=== PATIENT | female | born 1945 | race Caucasian/White ===

== ENCOUNTER 2017-06-18 22:05 | Inpatient (IN) | payer OTHER ==
[~2017-06-18] VITALS: Ht 157.5 cm; Wt 60.0 kg
[2017-06-18 22:05] VITALS: Ht 157.5 cm; Wt 60.0 kg
[2017-06-18] MEDS ORDERED: SOD CHLORIDE 0.9% 1,000 ML IV STA (22:30)
[2017-06-18] MEDS ORDERED: ASPIRIN 325 MG TAB PO STA (22:30)
[2017-06-18 23:36] LABS: ADD SCAN DIFF NO
[2017-06-18 23:39] LABS: BASOPHIL # 0.1 10^3/ul (0.0-0.1); BASOPHILS % 0.6 % (0.0-2.0); EOSINOPHILS # 0.3 10^3/ul (0.0-0.5); EOSINOPHILS % 3.8 % (0.0-7.0); HEMATOCRIT 38.4 % (37.0-47.0); HEMOGLOBIN 12.8 g/dl (12.0-16.0); LYMPHOCYTES # 2.7 10^3/ul (0.8-2.9); LYMPHOCYTES % 32.5 % (15.0-51.0); MEAN CORPUSCULAR HEMOGLOBIN 29.8 pg (29.0-33.0); MEAN CORPUSCULAR HGB CONC 33.3 g/dl (32.0-37.0); MEAN CORPUSCULAR VOLUME 89.3 fl (82.0-101.0); MONOCYTE # 0.8 10^3/ul (0.3-0.9); MONOCYTES % 9.3 % (0.0-11.0); NEUTROPHIL # 4.5 10^3/ul (1.6-7.5); NEUTROPHILS % 53.4 % (39.0-77.0); PLATELET COUNT 239 10^3/UL (140-415); RED CELL DISTRIBUTION WIDTH 12.7 % (11.5-14.5); WHITE BLOOD COUNT 8.4 10^3/ul (4.8-10.8)
--- NOTE | 2017-06-18 23:46 | RADRPT ---
PROCEDURE: XR Chest. CLINICAL INDICATION: Possible Stroke TECHNIQUE: Single frontal view of the chest. COMPARISON: None. FINDINGS: Cardiomegaly. Atherosclerotic calcifications of the thoracic aorta. Elevation of the right hemidiap hragm with likely atelectasis at the right lung base. The lungs otherwise clear. No signs of pleura l fluid or pneumothorax are seen. The osseous structures and soft tissues are unremarkable. IMPRESSION: Elevation right hemidiaphragm with likely atelectasis at the right lung base. RPTAT: [facility]U Physician Ricardo Date Time Electronically viewed and signed by Physician Ricardo on 06/18/2017 23:45 RS/
[2017-06-18 23:54] LABS: INR 0.91; PROTIME 12.3 Sec (12.2-14.2)
[2017-06-18 23:55] LABS: PARTIAL THROMBOPLASTIN TIME 33.7 Sec (25.0-35.0)
[2017-06-18] MEDS ORDERED: ASPI-664 PO (23:59)
[2017-06-18] MEDS ORDERED: DULO30CA47 PO (23:59)
[2017-06-18] MEDS ORDERED: MEMA5TAB PO (23:59)
[2017-06-18] MEDS ORDERED: LEVO150T67 PO (23:59)
[2017-06-18] MEDS ORDERED: DEXT1CAP PO (23:59)
[2017-06-18] MEDS ORDERED: ATOR20TA38 PO (23:59)
--- NOTE | 2017-06-18 23:59 | ERA ---
ER Documentation Chief Complaint Date/Time DATE: 06/18/17 TIME: 23:53 Chief Complaint R arm pain/numbness today from facility HPI This is a 71-year-old female with a history of prior stroke leaving her with some cognitive decline and expressive dysphasia she is able to communicate some of her thoughts but some of her thoughts are complete garbled word salad. Patient is residing at a [facility] unit and she had complained of some right arm complaints this afternoon. The time is unknown. After spending some time with her carefully trying to put together the history the patient is actually complaining that she has some numbness to her right face and right arm and she says it is like it was before meaning like her old stroke. I do not know if her expressive dysphasia is any worse. She says her right leg is okay. No weakness. ROS All systems reviewed and are negative except as per history of present illness. Medications Home Meds Reported Medications Aspirin* (Aspirin* EC) 81 Mg Tablet.dr, 81 MG PO DAILY, TAB TAKE 2 TABLETS BY MOUTH DAILY 06/18/17 Atorvastatin Calcium* (Atorvastatin Calcium*) 20 Mg Tablet, 20 MG PO QHS, #30 TAB 06/18/17 Levothyroxine Sodium* (Levothyroxine Sodium*) 150 Mcg Tablet, 150 MCG PO BEFORE BREAKFAST, #30 TAB 06/18/17 Duloxetine Hcl* (Duloxetine Hcl*) 30 Mg Capsule.dr, 30 MG PO DAILY, #30 CAP TAKE ONE CAPSULE BY MOUTH DAILY 06/18/17 Dextromethorphan Hbr/Quinidine (NUEDEXTA 20-10 MG CAPSULE) 1 Each Capsule, 1 EACH PO, CAP TAKE 1 CAPSULE DAILY W/BREAKFAST 06/18/17 Memantine* (Namenda*) 5 Mg Tablet, 5 MG PO BID, #60 TAB TAKE 1 TABLET BY MOUTH 2 TIMES A DAY 06/18/17 FmHx Family History: No coronary disease Physical Exam Vitals Vital Signs Date Time Temp Pulse Resp B/P Pulse Ox O2 Delivery O2 Flow Rate FiO2 06/19/17 02:36 98.7 66 19 150/71 98 Room Air 06/19/17 01:35 98.6 63 18 142/87 96 Room Air 06/18/17 22:25 98.3 63 18 152/97 96 Room Air 06/18/17 22:05 97.7 73 18 130/65 96 Physical Exam Const: Well-developed, well-nourished Head: Atraumatic, normocephalic Eyes: Normal Conjunctiva, PERRLA, EOMI, normal sclera, no nystagmus ENT: Normal External Ears, Nose and Mouth, moist mucus membranes. Neck: Full range of motion. No meningismus, no lymphadenopathy. Resp: Clear to auscultation bilaterally, no wheezing, rhonchi, rales Cardio: Regular rate and rhythm, no murmurs, S1 S2 present Abd: Soft, non tender x 4, non distended. Normal bowel sounds, no guarding or rebound, no pulsitile abdominal masses or bruits Skin: No petechiae or rashes, no ecchymosis , no maculopapular rash Back: No midline or flank tenderness Ext: No cyanosis, or edema, FROM x 4, normal inspection, neurovascularly intact x 4 Neur: Awake and alert, STR 5/5 x 4, sensation intact x 3, the right upper extremity is numb as well as the right cheek. She has expressive aphasia/ word salad,, no focal findings, cerebellum intact Psych: Normal Mood and Affect Result Diagram: 06/18/17 2320 06/18/17 2320 Results 24 hrs Laboratory Tests Test 06/18/17 23:20 White Blood Count 8.410^3/ul Red Blood Count 4.3010^6/ul Hemoglobin 12.8g/dl Hematocrit 38.4% Mean Corpuscular Volume 89.3fl Mean Corpuscular Hemoglobin 29.8pg Mean Corpuscular Hemoglobin Concent 33.3g/dl Red Cell Distribution Width 12.7% Platelet Count 99305^3/UL Mean Platelet Volume 11.0fl Neutrophils % 53.4% Lymphocytes % 32.5% Monocytes % 9.3% Eosinophils % 3.8% Basophils % 0.6% Nucleated Red Blood Cells % 0.0/100WBC Neutrophils # 4.510^3/ul Lymphocytes # 2.710^3/ul Monocytes # 0.810^3/ul Eosinophils # 0.310^3/ul Basophils # 0.110^3/ul Nucleated Red Blood Cells # 0.010^3/ul Prothrombin Time 12.3Sec Prothrombin Time Ratio 1.0 INR International Normalized Ratio 0.91 Activated Partial Thromboplast Time 33.7Sec Sodium Level 144mmol/L Potassium Level 3.9mmol/L Chloride Level 104mmol/L Carbon Dioxide Level 28mmol/L Anion Gap 16 Blood Urea Nitrogen 17mg/dl Creatinine 0.70mg/dl Glucose Level 101mg/dl Calcium Level 9.0mg/dl Total Bilirubin 0.1mg/dl Direct Bilirubin 0.00mg/dl Indirect Bilirubin 0.1mg/dl Aspartate Amino Transf (AST/SGOT) 26IU/L Alanine Aminotransferase (ALT/SGPT) 32IU/L Alkaline Phosphatase 126IU/L Troponin I < 0.012ng/ml Total Protein 6.0g/dl Albumin 3.3g/dl Globulin 2.70g/dl Albumin/Globulin Ratio 1.22 Current Medications Medications (Trade) Dose Ordered Sig/Hussain Route PRN Reason Start Time Stop Time Status Last Admin Dose Admin Sodium Chloride (NS) 1,000 ml @ 1,000 mls/hr Q1H STAT IV 06/18/17 22:30 06/18/17 23:29 DC 06/19/17 00:27 Aspirin (Aspirin) 325 mg ONCE STAT PO 06/18/17 22:30 06/18/17 22:31 DC 06/18/17 22:30 Procedures/MDM PROCEDURE: XR Chest. CLINICAL INDICATION: Possible Stroke TECHNIQUE: Single frontal view of the chest. COMPARISON: None. FINDINGS: Cardiomegaly. Atherosclerotic calcifications of the thoracic aorta. Elevation of the right hemidiaphragm with likely atelectasis at the right lung base. The lungs otherwise clear. No signs of pleural fluid or pneumothorax are seen. The osseous structures and soft tissues are unremarkable. IMPRESSION: Elevation right hemidiaphragm with likely atelectasis at the right lung base. RPTAT: [facility]U Physician Ricardo Date Time Electronically viewed and signed by Physician Ricardo on 06/18/2017 23:45 RS/ CC: LEAH CADET DO Patient is likely having a stroke versus TIA hopefully. The patient is not a TPA candidate unknown time of onset this afternoon. She is also not having any weakness and is numbness of the arm and face We will admit to the hospital for MRI and further workup EKG: Rate/Rhythm: Normal Sinus Rhythm,NL intervals QRS, ST, QT: NORMAL MI, QRS, QT] Impression: NORMAL EKG PROCEDURE: CT BRAIN WITHOUT CONTRAST CLINICAL INDICATION: 71-year-old female with headaches and right arm pain. TECHNIQUE: The study was performed utilizing YuanV VCT 64-slice CT scanner. Direct axial sections were obtained from the foramen magnum to the vertex without the use of intravenous contrast material. Sagittal and coronal reformations were obtained. Sagittal and coronal reformations were obtained. One or more the following dose reduction techniques were utilized: automated exposure control, adjustment of the mA and/or kV according to patient's size or use of iterative reconstruction technique. The images were viewed on a PACS workstation. CTD/vol = 44.5 mGy; Total Exam DLP = 720.2 mGy-cm. COMPARISON: MRI brain October 02, 2016 performed at [facility]. FINDINGS: There is extensive encephalomalacia within the left middle cerebral artery distribution consistent with a prior infarct. There is mild ex vacuo dilatation of the left lateral ventricle. There is kehw-bp-mnsrpour degree of diffuse cortical and central atrophy. There is no evidence for mass effect or midline shift. There are periventricular areas of decreased density consistent with microangiopathic ischemic changes. There is no evidence for acute intra or extra-axial blood. The bony calvarium is intact. The partially visualized paranasal sinuses and mastoid air cells are without significant abnormal soft tissue. IMPRESSION: 1. Iixl-kt-rpdasdpq diffuse atrophy. 2. Microangiopathic ischemic changes. 3. Old left middle cerebral artery distribution infarct. .Lamont Ponce MD, Date Time Electronically viewed and signed by .Lamont Ponce MD, on 06/19/2017 01:02 .M/ CC: LEAH CADET DO Departure Diagnosis: Primary Impression: CVA (cerebral vascular accident) Qualified Code: I63.9 - Cerebrovascular accident (CVA), unspecified mechanism Condition: LEAH Mckenna DO Jun 18, 2017 23:58
[2017-06-19] VITALS (10 sets, daily range): BP systolic 119–152; BP diastolic 54–74; PULSE 64–74; RESP 17–18; TEMP 98.3
[2017-06-19 00:02] LABS: ALANINE AMINOTRANSFERASE 32 IU/L (13-69); ALBUMIN 3.3 g/dl (3.3-4.9); ALBUMIN/GLOBULIN RATIO 1.22; ALKALINE PHOSPHATASE 126 IU/L (42-121); ANION GAP 16 (8-16); ASPARTATE AMINO TRANSFERASE 26 IU/L (15-46); BILIRUBIN,INDIRECT 0.1 mg/dl (0-1.1); BILIRUBIN,TOTAL 0.1 mg/dl (0.2-1.3); BLOOD UREA NITROGEN 17 mg/dl (7-20); CARBON DIOXIDE 28 mmol/L (21-31); CHLORIDE 104 mmol/L (97-110); GLUCOSE 101 mg/dl (70-220); POTASSIUM 3.9 mmol/L (3.5-5.1); SODIUM 144 mmol/L (135-144)
[2017-06-19 00:14] LABS: TROPONIN-I < 0.012 ng/ml (0.00-0.12)
--- NOTE | 2017-06-19 01:02 | RADRPT ---
PROCEDURE: CT BRAIN WITHOUT CONTRAST CLINICAL INDICATION: 71-year-old female with headaches and right arm pain. TECHNIQUE: The study was performed utilizing [employer] VCT 64-slice CT scanner. Direct axial sections were obtained from the foramen magnum to the vertex without the use of intravenous contrast material. Sagittal and coronal reformations were obtained. Sagittal and coronal reformations were obtained. One or more the following dose reduction techniques were utilized: automated exposure cont rol, adjustment of the mA and/or kV according to patient's size or use of iterative reconstruction t echnique. The images were viewed on a PACS workstation. CTD/vol = 44.5 mGy; Total Exam DLP = 720.2 mGy-cm. COMPARISON: MRI brain October 02, 2016 performed at [facility]. FINDINGS: There is extensive encephalomalacia within the left middle cerebral artery distribution consistent w ith a prior infarct. There is mild ex vacuo dilatation of the left lateral ventricle. There is mil p-lc-ivmepelz degree of diffuse cortical and central atrophy. There is no evidence for mass effect or midline shift. There are periventricular areas of decreased density consistent with microangiopa thic ischemic changes. There is no evidence for acute intra or extra-axial blood. The bony calvariu m is intact. The partially visualized paranasal sinuses and mastoid air cells are without significan t abnormal soft tissue. IMPRESSION: 1. Tzti-jw-cgqwrqqv diffuse atrophy. 2. Microangiopathic ischemic changes. 3. Old left middle cerebral artery distribution infarct. .Lamont Ponce MD, Date Time Electronically viewed and signed by .Lamont Ponce MD, on 06/19/2017 01:02 .Greg
[2017-06-19] MEDS ORDERED: SOD CHLORIDE 0.9% 1,000 ML IV SCH (03:16)
[2017-06-19] MEDS ORDERED: ACETAMINOPHEN 325 MG TAB PO PRN ×2 (03:30→07:30)
[2017-06-19] MEDS ORDERED: ONDANSETRON 4 MG INJ IV PRN ×2 (03:30→07:30)
[2017-06-19] MEDS ORDERED: morphine 2 MG INJ IV PRN (07:30)
[2017-06-19] MEDS ORDERED: ALBUTEROL/IPRATROPIUM (NEB) 3 ML AMP HHN PRN (07:30)
[2017-06-19] MEDS ORDERED: NACL 0.9% 3 ML SYG IV SCH (07:30)
--- NOTE | 2017-06-19 09:58 | RADRPT ---
PROCEDURE: US Carotids. CLINICAL INDICATION: CVA. TECHNIQUE: Multiple sonographic of the carotid arteries were obtained utilizing marie scale imaging . Color and Doppler imaging was performed. The images were reviewed on a PACS workstation. COMPARISON: No prior studies are available for comparison. FINDINGS: Location Right Left CCA 58 cm/sec 63 cm/sec Prox ICA 44 cm/sec 63 cm/sec Mid ICA 73 cm/sec 73 cm/sec Dist ICA 73 cm/sec 80 cm/sec ECA 62 cm/sec 50 cm/sec ICA/CCA 1.3 1.9 Antegrade flow is seen within the vertebral arteries bilaterally. No significant plaque is seen with in the carotid system bilaterally. No hemodynamically significant stenosis or occlusion is identifi ed. IMPRESSION: 1. No evidence for hemodynamically significant stenosis - validated velocity measurements with angio graphic measurements, velocity criteria are extrapolated from diameter data as defined by the Societ y of Radiologists in Ultrasound Consensus Conference Radiology 2003; 229;340-346. This study does i ndirectly reference the measurement of the distal ICA diameter as the denominator for stenosis measu rement. 2. Antegrade flow seen within the vertebral arteries bilaterally. SRU Consensus Conference Criteria for the Diagnosis of Carotid Artery Stenosis Degree of Stenosis, % ICA PSV, cm/sec Plaque Estimate, % ICA/CCA PSV Ratio Normal <125 None <2.0 <50 <125 <50 <2.0 50 69 125-230 >50 2.0-4.0 >70 but less than near occlusion >230 >50 <4.0 Near occlusion High, low, or undetectable Visible Variable Total occlusion Undetectable Visible, no detectable lumen Not applicable *Cartoid artery stenosis: marie-scale and Doppler US diagnosis. Society of Radiologists in Ultrasound Consensus Conference. Radiology 2003; 229: 340-346 RPTAT: JJ .Juan Pablo Zhang MD, Date Time Electronically viewed and signed by .Juan Pablo Zhang MD, MD on 06/19/2017 09:58 .A/
[2017-06-19 10:20] LABS: ADD SCAN DIFF NO
[2017-06-19] MEDS: MEMANTINE 5 MG TAB PO SCH ×2 (10:21→20:43)
[2017-06-19] MEDS: DULOXETINE 30 MG CAP DR PO SCH (10:21)
[2017-06-19] MEDS: ASPIRIN 81 MG TAB PO SCH (10:21)
[2017-06-19] MEDS: ENOXAPARIN 40 MG/0.4 ML SYG SC SCH (10:27)
[2017-06-19 10:28] LABS: BASOPHIL # 0.1 10^3/ul (0.0-0.1); BASOPHILS % 0.8 % (0.0-2.0); EOSINOPHILS # 0.3 10^3/ul (0.0-0.5); EOSINOPHILS % 3.8 % (0.0-7.0); HEMOGLOBIN 13.1 g/dl (12.0-16.0); LYMPHOCYTES % 30.9 % (15.0-51.0); MEAN CORPUSCULAR HEMOGLOBIN 29.3 pg (29.0-33.0); MEAN CORPUSCULAR HGB CONC 32.8 g/dl (32.0-37.0); MEAN CORPUSCULAR VOLUME 89.5 fl (82.0-101.0); MONOCYTE # 0.6 10^3/ul (0.3-0.9); MONOCYTES % 8.5 % (0.0-11.0); NEUTROPHIL # 3.7 10^3/ul (1.6-7.5); NEUTROPHILS % 55.7 % (39.0-77.0); PLATELET COUNT 230 10^3/UL (140-415); RED BLOOD COUNT 4.47 10^6/ul (4.20-5.40); RED CELL DISTRIBUTION WIDTH 12.5 % (11.5-14.5); WHITE BLOOD COUNT 6.6 10^3/ul (4.8-10.8)
[2017-06-19 10:50] LABS: ALBUMIN 3.6 g/dl (3.3-4.9); ALBUMIN/GLOBULIN RATIO 1.24; BILIRUBIN,INDIRECT 0.2 mg/dl (0-1.1); BILIRUBIN,TOTAL 0.2 mg/dl (0.2-1.3); CALCIUM 9.2 mg/dl (8.4-10.2); CREATININE 0.69 mg/dl (0.44-1.00); POTASSIUM 4.2 mmol/L (3.5-5.1); TOTAL PROTEIN 6.5 g/dl (6.1-8.1)
--- NOTE | 2017-06-19 14:56 | CONS ---
Date/Time of Note Date/Time of Note DATE: 06/19/17 TIME: 14:50 Assessment/Plan Assessment/Plan Chief Complaint/Hosp Course 71 yo female with 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 -MRI Brain without contrast, MRA Head/Neck without contrast -maintain normotensive blood pressure -continue aspirin 81 mg daily -check HBA1C, FLP -ECHO w bubble study -tele monitoring for afib -PT/OT/Speech eval will follow up again tomorrow Problems: Consultation Date/Type/Reason Admit Date/Time Jun 19, 2017 at 03:16 Date of Consultation: Jun 19, 2017 Type of Consultation: Neurology Reason for Consultation evaluation for CVA Hx of Present Illness 71 year old female with history of previous Left MCA stroke residual aphasia and right sided weakness, presenting with right UE numbness and expressive aphasia. Difficult to obtain further history from patient due to severe Wernicke 's aphasia, admitted for further CVA work up. Social History Smoking Status: Never smoker Exam/Review of Systems Vital Signs Vitals Vital Signs Date Time Temp Pulse Resp B/P Pulse Ox O2 Delivery O2 Flow Rate FiO2 06/19/17 12:42 64 06/19/17 11:59 97.9 18 152/66 97 06/19/17 05:58 Room Air Exam awake and alert difficult to assess orientation for severe aphasia no neglect CN: VANIA, blinks to threat, EOMI no nystagmus V1-3 intact no facial asymmetry palate upgoing uvula midline scm/trap intact tongue midline Motor: no drift in arms on extremity 5/5 UE, LE Sensory: poor cooperation Coordination unable to assess due to aphasia Reflexes 1+ throughout UE and LE Results Result Diagram: 06/19/17 1009 06/19/17 1009 Results 24 hrs Laboratory Tests Test 06/18/17 23:20 06/19/17 10:09 White Blood Count 8.4 6.6 # Red Blood Count 4.30 4.47 Hemoglobin 12.8 13.1 Hematocrit 38.4 40.0 Mean Corpuscular Volume 89.3 89.5 Mean Corpuscular Hemoglobin 29.8 29.3 Mean Corpuscular Hemoglobin Concent 33.3 32.8 Red Cell Distribution Width 12.7 12.5 Platelet Count 239 230 Mean Platelet Volume 11.0 H 11.0 H Neutrophils % 53.4 55.7 Lymphocytes % 32.5 30.9 Monocytes % 9.3 8.5 Eosinophils % 3.8 3.8 Basophils % 0.6 0.8 Nucleated Red Blood Cells % 0.0 0.0 Neutrophils # 4.5 3.7 Lymphocytes # 2.7 2.0 Monocytes # 0.8 0.6 Eosinophils # 0.3 0.3 Basophils # 0.1 0.1 Nucleated Red Blood Cells # 0.0 0.0 Prothrombin Time 12.3 Prothrombin Time Ratio 1.0 INR International Normalized Ratio 0.91 Activated Partial Thromboplast Time 33.7 Sodium Level 144 148 H Potassium Level 3.9 4.2 Chloride Level 104 109 Carbon Dioxide Level 28 27 Anion Gap 16 16 Blood Urea Nitrogen 17 12 Creatinine 0.70 0.69 Glucose Level 101 93 Calcium Level 9.0 9.2 Total Bilirubin 0.1 L 0.2 Direct Bilirubin 0.00 0.00 Indirect Bilirubin 0.1 0.2 Aspartate Amino Transf (AST/SGOT) 26 26 Alanine Aminotransferase (ALT/SGPT) 32 32 Alkaline Phosphatase 126 H 135 H Troponin I < 0.012 Total Protein 6.0 L 6.5 Albumin 3.3 3.6 Globulin 2.70 2.90 Albumin/Globulin Ratio 1.22 1.24 Hemoglobin A1c 5.4 Triglycerides Level 105 Cholesterol Level 139 LDL Cholesterol, Calculated 73 HDL Cholesterol 45 Cholesterol/HDL Ratio 3.0 Thyroid Stimulating Hormone (TSH) < 0.015 L Medications Medications Current Medications Sodium Chloride (NS) 1,000 ml @ 80 mls/hr [id number] IV Last administered on 06/19 10:21; Admin Dose 80 MLS/HR; Start 06/19/17 at 03:16; Stop 06/19/17 at 15: 45 Ondansetron HCl (Zofran Inj) 4 mg Q6H PRN IV NAUSEA AND/OR VOMITING; Start at 07:30 Aspirin (Aspirin) 81 mg DAILY PO Last administered on 06/19/17 10:21; Admin Dose 81 MG; Start 06/19/17 at 09:00 Acetaminophen (Tylenol Tab) 650 mg Q6H PRN PO PAIN LEVEL 1-3 OR FEVER; Start at 07:30 Morphine Sulfate (morphine) 2 mg Q4H PRN IV PAIN LEVEL 7-10; Start 06/19/17 at 07:30 Enoxaparin Sodium (Lovenox) 40 mg DAILY SC Last administered on 06/19/17 10:27 ; Admin Dose 40 MG; Start 06/19/17 at 09:00 Atorvastatin Calcium (Lipitor) 20 mg QHS PO ; Start 06/19/17 at 21:00 Duloxetine HCl (Cymbalta) 30 mg DAILY PO Last administered on 06/19/17 10:21; Admin Dose 30 MG; Start 06/19/17 at 09:00 Memantine (Namenda) 5 mg BID PO Last administered on 06/19/17 10:21; Admin Dose 5 MG; Start 06/19/17 at 09:00 JESSICA MARIN MD Jun 19, 2017 14:55
[2017-06-19] MEDS: LEVOTHYROXINE 150 MCG TAB PO SCH (15:46)
[2017-06-19] MEDS ORDERED: ATORVASTATIN 20 MG TAB PO SCH (21:00)
--- NOTE | 2017-06-19 21:00 | RADRPT ---
Echocardiogram Report Patient Name: EDEN ASCENCIO Gender: Female Date: 1945 Study Date: 19-Jun-2017 Tan Room Supervisor: Luke Cunningham [facility] Location: 5565 Ref. Physician: JAC HERNANDEZ Quality: Adequate Procedures: Transthoracic echocardiogram with complete 2D, M-Mode, and doppler examination. Indications: Stroke. 2D/M Mode Doppler Measurement Value Normal Ranges Measurement Value Normal Ranges LVIDd 2D 4.7 3.5 - 5.6 cm AV Peak Edwin 1.1 m/sec LVIDs 2D 3.1 2.1 - 4.1 cm AV Peak PG 5.0 mmHg LVPWd 2D 1.0 0.6 - 1.1 cm AI Peak PG 28.0 mmHg IVSd 2D 1.1 0.6 - 1.1 cm AI Peak Edwin 2.7 m/sec AoR Diam 2D 3.2 2.0 - 3.7 cm AI PHT 535.0 msec LA/Ao 2D 1 0 - 1 LVOT Peak Edwin 1.0 m/sec LA Dimen 2D 4.0 2.3 - 4.0 cm LVOT Peak PG 4.0 mmHg MV E Peak Edwin 0.4 m/sec MV A Peak Edwin 0.9 m/sec MV E/A 0.4 MV Decel Time 313 msec MV E/A 0.4 TR Peak Edwin 2.2 m/sec TR Peak PG 20.0 mmHg RVSP 23.0 mmHg Findings Left Ventricle: Normal left ventricular systolic function. Normal left ventricular cavity size. Mild concentric left ventricular hypertrophy. Ejection fraction is visually estimated at 60 %. Tissue Doppler/Mitral Doppler indices are consistent with impaired relaxation (Stage I diastolic dysfunction). Right Ventricle: Normal right ventricular size. Normal right ventricular systolic function. Left Atrium: There is mild enlargement of left atrium. Right Atrium: The right atrium is normal in size. Mitral Valve: Normal appearance and function of the mitral valve with trace physiologic regurgitation. Aortic Valve: No hemodynamically significant aortic stenosis by doppler. Aortic cusps appear mildly calcified. Mild aortic valve regurgitation. Tricuspid Valve: Normal appearance of the tricuspid valve. Estimated peak PA systolic pressure 23 mmHg. There is trace tricuspid regurgitation. Pulmonic Valve: Normal pulmonic valve appearance. Pericardium: Normal pericardium with no significant pericardial effusion. Aorta: Normal aortic root. IVC: Normal size and normal respiratory collapse consistent with normal right atrial pressure. Conclusions 1.Normal left ventricular systolic function. Normal left ventricular cavity size. Mild concentric left ventricular hypertrophy. Ejection fraction is visually estimated at 60 %. Tissue Doppler/Mitral Doppler indices are consistent with impaired relaxation (Stage I diastolic dysfunction). 2.There is mild enlargement of left atrium. 3.Normal appearance and function of the mitral valve with trace physiologic regurgitation. 4.No hemodynamically significant aortic stenosis by doppler. Aortic cusps appear mildly calcified. Mild aortic valve regurgitation. 5.Normal appearance of the tricuspid valve. Estimated peak PA systolic pressure 23 mmHg. There is trace tricuspid regurgitation. Electronically Signed By: Pastor Tomlin 19-Jun-2017 20:59:49 -0700 Patient Name: EDEN ASCENCIO Study Date: 19-Jun-2017 [id number]
[2017-06-20] VITALS (8 sets, daily range): BP systolic 107–133; BP diastolic 58–67; PULSE 60–78; RESP 16–18
[2017-06-20] MEDS: LEVOTHYROXINE 150 MCG TAB PO SCH (05:39)
[2017-06-20 07:26] LABS: ADD SCAN DIFF NO
[2017-06-20 07:30] LABS: BASOPHIL # 0.1 10^3/ul (0.0-0.1); EOSINOPHILS # 0.3 10^3/ul (0.0-0.5); EOSINOPHILS % 4.2 % (0.0-7.0); HEMATOCRIT 40.1 % (37.0-47.0); HEMOGLOBIN 13.3 g/dl (12.0-16.0); LYMPHOCYTES # 1.7 10^3/ul (0.8-2.9); LYMPHOCYTES % 27.7 % (15.0-51.0); MEAN CORPUSCULAR HEMOGLOBIN 29.5 pg (29.0-33.0); MEAN CORPUSCULAR HGB CONC 33.2 g/dl (32.0-37.0); MEAN CORPUSCULAR VOLUME 88.9 fl (82.0-101.0); MEAN PLATELET VOLUME 10.8 fl (7.4-10.4); MONOCYTE # 0.6 10^3/ul (0.3-0.9); NEUTROPHIL # 3.6 10^3/ul (1.6-7.5); NEUTROPHILS % 57.9 % (39.0-77.0); PLATELET COUNT 215 10^3/UL (140-415); RED BLOOD COUNT 4.51 10^6/ul (4.20-5.40); RED CELL DISTRIBUTION WIDTH 12.6 % (11.5-14.5); WHITE BLOOD COUNT 6.3 10^3/ul (4.8-10.8)
[2017-06-20 07:56] LABS: CALCIUM 9.7 mg/dl (8.4-10.2); CREATININE 0.7 mg/dl (0.44-1.00); MAGNESIUM 1.9 mg/dl (1.7-2.5); PHOSPHORUS 4.1 mg/dl (2.5-4.9); POTASSIUM 3.8 mmol/L (3.5-5.1)
[2017-06-20] MEDS: MEMANTINE 5 MG TAB PO SCH (08:44)
[2017-06-20] MEDS: DULOXETINE 30 MG CAP DR PO SCH (08:44)
[2017-06-20] MEDS: ASPIRIN 81 MG TAB PO SCH (08:44)
[2017-06-20] MEDS: ENOXAPARIN 40 MG/0.4 ML SYG SC SCH (08:45)
--- NOTE | 2017-06-20 11:26 | PN ---
Date/Time of Note Date/Time of Note DATE: 06/20/17 TIME: 11:20 Assessment/Plan VTE Prophylaxis VTE Prophylaxis Intervention: LMWH Lines/Catheters IV [facility]ter [facility] (from [facility] Peripheral IV Urinary Cath still in place: No Assessment/Plan Chief Complaint/Hosp Course Assessment and plan: 71 year old female with history of previous Left MCA stroke residual aphasia and right sided weakness, presenting with right UE numbness and expressive aphasia. 1. Right arm numbness/weakness: Strong clinical signs of possible stroke, given her symptoms along with her word salad, aphasia, Warneke's. MRI MRA brain results are pending. Appreciate neurology consult. Seen by speech team. Awaiting physical therapy and occupational therapy eval. -Continue aspirin and statin, follow-up MRI MRA brain results, and neurology recommendations. -Follow-up occupational therapy and physical therapy recommendations as well. 2. Hypothyroidism: Continue Levoxyl 3. GI prophylaxis: PPI Problems: Subjective 24 Hr Interval Summary Free Text/Dictation Patient seen by neurology team, had her echocardiogram, carotid ultrasound, and MRI MRI brain performed. Still waiting for the results of MRI MRA brain. Still having signs of aphasia and word salad. Exam/Review of Systems Vital Signs Vitals Vital Signs Date Time Temp Pulse Resp B/P Pulse Ox O2 Delivery O2 Flow Rate FiO2 06/20/17 08:00 60 06/20/17 07:33 98.5 16 133/67 95 Room Air Intake and Output 06/19/17 06/19/17 06/20/17 15:00 23:00 07:00 Intake Total 600 ml 350 ml Balance 600 ml 350 ml Exam Const: Well-developed, well-nourished Head: Atraumatic, normocephalic Eyes: Normal Conjunctiva, PERRLA, EOMI, normal sclera, no nystagmus ENT: Normal External Ears, Nose and Mouth, moist mucus membranes. Neck: Full range of motion. No meningismus, no lymphadenopathy. Resp: Clear to auscultation bilaterally, no wheezing, rhonchi, rales Cardio: Regular rate and rhythm, no murmurs, S1 S2 present Abd: Soft, non tender x 4, non distended. Normal bowel sounds, no guarding or rebound, no pulsitile abdominal masses or bruits Skin: No petechiae or rashes, no ecchymosis , no maculopapular rash Back: No midline or flank tenderness Ext: No cyanosis, or edema, FROM x 4, normal inspection, neurovascularly intact x 4 Neur: Awake and alert, STR 5/5 x 4, sensation intact x 3, the right upper extremity is less numb as well as the right cheek. She still has some expressive aphasia/word salad, no focal findings, cerebellum intact Psych: Normal Mood and Affect Results Result Diagram: 06/20/17 0659 06/20/17 0659 Results 24 hrs Laboratory Tests Test 06/20/17 06:59 White Blood Count 6.3 Red Blood Count 4.51 Hemoglobin 13.3 Hematocrit 40.1 Mean Corpuscular Volume 88.9 Mean Corpuscular Hemoglobin 29.5 Mean Corpuscular Hemoglobin Concent 33.2 Red Cell Distribution Width 12.6 Platelet Count 215 Mean Platelet Volume 10.8 H Neutrophils % 57.9 Lymphocytes % 27.7 Monocytes % 9.0 Eosinophils % 4.2 Basophils % 1.0 Neutrophils # 3.6 Lymphocytes # 1.7 Monocytes # 0.6 Eosinophils # 0.3 Basophils # 0.1 Nucleated Red Blood Cells # 0.0 Sodium Level 145 H Potassium Level 3.8 Chloride Level 107 Carbon Dioxide Level 27 Anion Gap 15 Blood Urea Nitrogen 16 Creatinine 0.70 Glucose Level 100 Calcium Level 9.7 Phosphorus Level 4.1 Magnesium Level 1.9 Medications Medications Current Medications Ondansetron HCl (Zofran Inj) 4 mg Q6H PRN IV NAUSEA AND/OR VOMITING; Start at 07:30 Aspirin (Aspirin) 81 mg DAILY PO Last administered on 06/20/17 08:44; Admin Dose 81 MG; Start 06/19/17 at 09:00 Acetaminophen (Tylenol Tab) 650 mg Q6H PRN PO PAIN LEVEL 1-3 OR FEVER; Start at 07:30 Morphine Sulfate (morphine) 2 mg Q4H PRN IV PAIN LEVEL 7-10; Start 06/19/17 at 07:30 Enoxaparin Sodium (Lovenox) 40 mg DAILY SC Last administered on 06/20/17 08:45 ; Admin Dose 40 MG; Start 06/19/17 at 09:00 Atorvastatin Calcium (Lipitor) 20 mg QHS PO Last administered on 06/19/17 20: 43; Admin Dose 20 MG; Start 06/19/17 at 21:00 Duloxetine HCl (Cymbalta) 30 mg DAILY PO Last administered on 06/20/17 08:44; Admin Dose 30 MG; Start 06/19/17 at 09:00 Memantine (Namenda) 5 mg BID PO Last administered on 06/20/17 08:44; Admin Dose 5 MG; Start 06/19/17 at 09:00 ELMA IRVING Jun 20, 2017 11:26
--- NOTE | 2017-06-20 11:42 | CONS ---
Date/Time of Note Date/Time of Note DATE: 06/20/17 TIME: 11:40 Consult Date/Type/Reason Admit Date/Time Jun 19, 2017 at 03:16 Initial Consult Date 06/19/17 Type of Consultation: Neurology Reason for Consultation CVA eval Subjective pending imaging no complaints overnight, exam stable Objective Vital Signs Date Time Temp Pulse Resp B/P Pulse Ox O2 Delivery O2 Flow Rate FiO2 06/20/17 08:00 60 06/20/17 07:33 98.5 16 133/67 95 Room Air Intake and Output 06/19/17 06/19/17 06/20/17 15:00 23:00 07:00 Intake Total 600 ml 350 ml Balance 600 ml 350 ml Exam awake and alert difficult to assess orientation for severe aphasia no neglect CN: VANIA, blinks to threat, EOMI no nystagmus V1-3 intact no facial asymmetry palate upgoing uvula midline scm/trap intact tongue midline Motor: no drift in arms on extremity 5/5 UE, LE Sensory: poor cooperation Coordination unable to assess due to aphasia Reflexes 1+ throughout UE and LE Results/Medications Result Diagram: 06/20/1759 06/20/1759 Results 24 hrs Laboratory Tests Test 06/20/17 06:59 White Blood Count 6.3 Red Blood Count 4.51 Hemoglobin 13.3 Hematocrit 40.1 Mean Corpuscular Volume 88.9 Mean Corpuscular Hemoglobin 29.5 Mean Corpuscular Hemoglobin Concent 33.2 Red Cell Distribution Width 12.6 Platelet Count 215 Mean Platelet Volume 10.8 H Neutrophils % 57.9 Lymphocytes % 27.7 Monocytes % 9.0 Eosinophils % 4.2 Basophils % 1.0 Neutrophils # 3.6 Lymphocytes # 1.7 Monocytes # 0.6 Eosinophils # 0.3 Basophils # 0.1 Nucleated Red Blood Cells # 0.0 Sodium Level 145 H Potassium Level 3.8 Chloride Level 107 Carbon Dioxide Level 27 Anion Gap 15 Blood Urea Nitrogen 16 Creatinine 0.70 Glucose Level 100 Calcium Level 9.7 Phosphorus Level 4.1 Magnesium Level 1.9 Medications Current Medications Ondansetron HCl (Zofran Inj) 4 mg Q6H PRN IV NAUSEA AND/OR VOMITING; Start at 07:30 Aspirin (Aspirin) 81 mg DAILY PO Last administered on 06/20/17t 08:44; Admin Dose 81 MG; Start 06/19/17 at 09:00 Acetaminophen (Tylenol Tab) 650 mg Q6H PRN PO PAIN LEVEL 1-3 OR FEVER; Start at 07:30 Morphine Sulfate (morphine) 2 mg Q4H PRN IV PAIN LEVEL 7-10; Start 06/19/17 at 07:30 Enoxaparin Sodium (Lovenox) 40 mg DAILY SC Last administered on 06/20/17 08:45 ; Admin Dose 40 MG; Start 06/19/17 at 09:00 Atorvastatin Calcium (Lipitor) 20 mg QHS PO Last administered on 06/19/17 20: 43; Admin Dose 20 MG; Start 06/19/17 at 21:00 Duloxetine HCl (Cymbalta) 30 mg DAILY PO Last administered on 06/20/17 08:44; Admin Dose 30 MG; Start 06/19/17 at 09:00 Memantine (Namenda) 5 mg BID PO Last administered on 06/20/17 08:44; Admin Dose 5 MG; Start 06/19/17 at 09:00 Pantoprazole (Protonix Tab) 40 mg DAILY@06 PO ; Start 06/21/17 at 06:00 Assessment/Plan Chief Complaint/Hosp Course 71 yo female with 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 -MRI Brain without contrast, MRA Head/Neck without contrast -maintain normotensive blood pressure -continue aspirin 81 mg daily -LDL and HBA1C at goal -ECHO mild LA enlargement -tele monitoring for afib -PT/OT/Speech eval -will follow up after imaging completed Problems: JESSICA MARIN MD Jun 20, 2017 11:41
--- NOTE | 2017-06-20 16:47 | PDOCDIS ---
Discharge Instructions CONDITION Patient Condition: Stable HOME CARE INSTRUCTIONS: Diet Instructions: Low Fat /Cholesterol ACTIVITY: Activity Restrictions: Slowly Increase Activity FOLLOW UP/APPOINTMENTS Follow-up Plan Please take your medicines as prescribed. Please follow-up with your primary doctor in the clinic in the next 1 week. ELMA IRVING Jun 20, 2017 16:47
--- NOTE | 2017-06-20 16:53 | DS ---
Date/Time of Note Date/Time of Note DATE: 06/20/17 TIME: 16:48 Discharge Summary Admission/Discharge Info Admit Date/Time Jun 19, 2017 at 03:16 Discharge Date/Time Discharge Diagnosis 1. Right arm numbness/weakness: Ruled out for stroke, 2. Hypothyroidism Patient Condition: Stable Hospital Course 71-year-old female with a history of prior stroke leaving her with some cognitive decline and expressive dysphasia she is able to communicate some of her thoughts but some of her thoughts are complete garbled word salad. Patient is residing at a [id number] and she had complained of some right arm complaints this afternoon. The time is unknown. After spending some time with her carefully trying to put together the history the patient is actually complaining that she has some numbness to her right face and right arm and she says it is like it was before meaning like her old stroke. 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 She underwent MRI MRA of the brain which is negative for acute findings as well as head CT that was negative for acute findings. Doppler studies did not show any significant carotid stenosis bilaterally. Echocardiogram showed: Conclusions 1. Normal left ventricular systolic function. Normal left ventricular cavity size. Mild concentric left ventricular hypertrophy. Ejection fraction is visually estimated at 60 %. Tissue Doppler/Mitral Doppler indices are consistent with impaired relaxation (Stage I diastolic dysfunction). 2. There is mild enlargement of left atrium. 3. Normal appearance and function of the mitral valve with trace physiologic regurgitation. 4. No hemodynamically significant aortic stenosis by doppler. Aortic cusps appear mildly calcified. Mild aortic valve regurgitation. 5. Normal appearance of the tricuspid valve. Estimated peak PA systolic pressure 23 mmHg. There is trace tricuspid regurgitation. Over the course of her hospital stay patient came back to baseline status she was able to ambulate and tolerated p.o. diet she will be discharged home today in improved condition please see below for full discharge medication list. Home Meds Reported Medications Aspirin* (Aspirin* EC) 81 Mg Tablet.dr, 81 MG PO DAILY, TAB TAKE 2 TABLETS BY MOUTH DAILY 06/18/17 Atorvastatin Calcium* (Atorvastatin Calcium*) 20 Mg Tablet, 20 MG PO QHS, #30 TAB 06/18/17 Levothyroxine Sodium* (Levothyroxine Sodium*) 150 Mcg Tablet, 150 MCG PO BEFORE BREAKFAST, #30 TAB 7/19/17 Duloxetine Hcl* (Duloxetine Hcl*) 30 Mg Capsule.dr, 30 MG PO DAILY, #30 CAP TAKE ONE CAPSULE BY MOUTH DAILY 06/18/17 Dextromethorphan Hbr/Quinidine (NUEDEXTA 20-10 MG CAPSULE) 1 Each Capsule, 1 EACH PO, CAP TAKE 1 CAPSULE DAILY W/BREAKFAST 06/18/17 Memantine* (Namenda*) 5 Mg Tablet, 5 MG PO BID, #60 TAB TAKE 1 TABLET BY MOUTH 2 TIMES A DAY 06/18/17 Primary Care Provider Care Physician No Primary Time spent on discharge: > 30 minutes Pending Labs Laboratory Tests Test 06/20/17 06:59 06/20/17 13:09 White Blood Count 6.310^3/ul (4.8-10.8) Red Blood Count 4.5110^6/ul (4.20-5.40) Hemoglobin 13.3g/dl (12.0-16.0) Hematocrit 40.1% (37.0-47.0) Mean Corpuscular Volume 88.9fl (82.0-101.0) Mean Corpuscular Hemoglobin 29.5pg (29.0-33.0) Mean Corpuscular Hemoglobin Concent 33.2g/dl (32.0-37.0) Red Cell Distribution Width 12.6% (11.5-14.5) Platelet Count 12045^3/UL (140-415) Mean Platelet Volume 10.8fl (7.4-10.4) Neutrophils % 57.9% (39.0-77.0) Lymphocytes % 27.7% (15.0-51.0) Monocytes % 9.0% (0.0-11.0) Eosinophils % 4.2% (0.0-7.0) Basophils % 1.0% (0.0-2.0) Neutrophils # 3.610^3/ul (1.6-7.5) Lymphocytes # 1.710^3/ul (0.8-2.9) Monocytes # 0.610^3/ul (0.3-0.9) Eosinophils # 0.310^3/ul (0.0-0.5) Basophils # 0.110^3/ul (0.0-0.1) Nucleated Red Blood Cells # 0.010^3/ul (0.0-0.0) Sodium Level 145mmol/L (135-144) Potassium Level 3.8mmol/L (3.5-5.1) Chloride Level 107mmol/L (97-110) Carbon Dioxide Level 27mmol/L (21-31) Anion Gap 15 (8-16) Blood Urea Nitrogen 16mg/dl (7-20) Creatinine 0.70mg/dl (0.44-1.00) Glucose Level 100mg/dl (70-220) Calcium Level 9.7mg/dl (8.4-10.2) Phosphorus Level 4.1mg/dl (2.5-4.9) Magnesium Level 1.9mg/dl (1.7-2.5) Lab Scanned Report REFERENCE [id number] ELMA IRVING Jun 20, 2017 16:53
[2017-06-21] MEDS ORDERED: PANTOPRAZOLE (EC) 40 MG TAB PO SCH (06:00)
== END 2017-06-20 18:55 | disposition home or self-care (01) | DRG 948 ==
LOC: E/R 22:05 → MS4 06-19 03:16
PROVIDERS: ADMIT Internal Medicine; ATTEND Internal Medicine
DX: R53.1 Weakness (principal); I69.351 Hemiplegia and hemiparesis following cerebral infarction affecting right dominant side; I69.320 Aphasia following cerebral infarction; E03.9 Hypothyroidism, unspecified; R20.2 Paresthesia of skin
CPT/HCPCS: 36415; 70450; 70544; 70551; 71010; 80048; 80053; 80061; 83036; 83735; 84100; 84439; 84443; 84484; 85025; 85610; 85730; 87081; 92610; 93005; 93306; 93880; 97162; J1650; J7030

== ENCOUNTER 2018-03-11 17:54 | Emergency (ER) | END 2018-03-12 00:34 | disposition home or self-care (01) ==